=== PATIENT | male | born 1975 | race Caucasian/White ===

== ENCOUNTER 2016-12-29 13:28 | Inpatient (IN) | payer OTHER ==
[~2016-12-29] VITALS: Ht 188 cm; Wt 115.7 kg
[2016-12-29 13:30] VITALS: O2SAT 97
[2016-12-29] MEDS ORDERED: LORAZEPAM 1 MG TAB SL STA (14:12)
[2016-12-29 14:29] LABS: URINE APPEARANCE CLEAR (CLEAR); URINE BILIRUBIN NEG (NEG); URINE COLOR YELLOW; URINE EPITHELIAL CELL AUTO 20-30 /lpf (0-5); URINE NITRITE NEG (NEG); URINE PH 5.5 (4.5-7.5); URINE SPECIFIC GRAVITY 1.021 (1.000-1.030); UROBILINOGEN NEG (NEG)
--- NOTE | 2016-12-29 14:30 | EMERGENCY ROOM VISIT NOTE ---
History Report prepared by Christopher: Rinku Leyva Under the Supervision of: Dr. Geremias Clay D.O. First contact with patient: 13:35 Chief Complaint: MENTAL HEALTH EVALUATION Stated Complaint: MR History of Present Illness The patient is a 41 year old male who presents to the Emergency Room by police with complaints of mental health problems. The patient arrived at the emergency department for a 302 petition. At this time the patient denies any suicidal or homicidal ideation. He does state that he has been compliant with his medications with the exception of this morning. He is very concerned because he was recently discharged from his primary care physician's practice. The patient has had multiple mental health admissions in the past. He states that he was recently admitted to at [facility] for inpatient psychiatric care for 302 petition as well. He is very concerned about this admission and continues to talk about the paperwork that he brought with him regarding this admission. The patient is also very concerned because he does not have any follow-up at this time. He's currently denying any suicidal or homicidal ideation. He states that he is homeless. He denies any medical complaints such as headache chest pain shortness of breath or fever. He does have abrasions on his lower extremities from being outdoors. He denies any drug or alcohol abuse recently. Review of Systems See HPI for pertinent positives & negatives. A total of 10 systems reviewed and were otherwise negative. Past Medical & Surgical Medical Problems: (1) Suicidal ideation No pertinent past medical history stated. Family History No pertinent family history stated. Social History Smoking Status: Current Every Day Smoker Smokeless Tobacco Use: No Alcohol Use: occasionally Drug Use: none Current/Historical Medications Scheduled Phentermine Hcl (Adipex P), 37.5 MG PO DAILY Sertraline (Zoloft), 150 MG PO DAILY Topiramate (Topamax), 150 MG PO DAILY Allergies Coded Allergies: No Known Allergies (Unverified , 12/30/16) Physical Exam Vital Signs Date Time Temp Pulse Resp B/P (MAP) Pulse Ox O2 Delivery O2 Flow Rate FiO2 12/29/16 19:28 87 16 12/29/16 19:13 94 2 12/29/16 19:05 100 12/29/16 19:01 117/69 12/29/16 18:58 86 7 12/29/16 18:40 120/75 12/29/16 13:30 36.7 86 18 158/95 97 Room Air Physical Exam GENERAL: Patient awake and alert. He appears very guarded and anxious. EYES: The conjunctivae are clear. The pupils are round and reactive. EARS, NOSE, MOUTH AND THROAT: The nose is without any evidence of any deformity. Mucous membranes are moist tongue is midline NECK: The neck is nontender and supple. RESPIRATORY: Normal respiratory effort is noted there is no evidence of wheezing rhonchi or rales CARDIOVASCULAR: Regular rate and rhythm noted there no murmurs rubs or gallops normal S1 normal S2 GASTROINTESTINAL: The abdomen is soft. Bowel sounds are present in all quadrants. Abdomen is nontender MUSCULOSKELETAL/EXTREMITIES: There is no evidence of gross deformity full range of motion is noted in the hips and shoulders SKIN: There is no obvious evidence of any rash. There are linear abrasions over both lower extremities. There are no signs of infection or cellulites.. NEUROLOGIC: Patient is awake alert and oriented x3 strength is symmetric patellar reflexes are 2+ bilaterally PSYCH: Patient is awake and alert. He is very guarded and anxious appearing. His thought processes is very tangential. The patient continues to talk about an episode that occurred at a previous hospital when he was admitted for mental health inpatient stay last month. The patient appears somewhat paranoid at times. He is unsure why there was a 302 petition at this time. Medical Decision & Procedures Laboratory Results 12/29/16 14:36 Red Blood Count 5.18, Mean Corpuscular Volume 85.3, Mean Corpuscular Hemoglobin 29.2, Mean Corpuscular Hemoglobin Concent 34.2, Mean Platelet Volume 9.8, Neutrophils (%) (Auto) 67.8, Lymphocytes (%) (Auto) 25.1, Monocytes (%) (Auto) 6.2, Eosinophils (%) (Auto) 0.5, Basophils (%) (Auto) 0.2, Neutrophils # (Auto) 8.27, Lymphocytes # (Auto) 3.06, Monocytes # (Auto) 0.75, Eosinophils # (Auto) 0.06, Basophils # (Auto) 0.02 12/29/16 14:36 Test 12/29/16 13:30 12/29/16 14:36 Urine Color YELLOW Urine Appearance CLEAR (CLEAR) Urine pH 5.5 (4.5-7.5) Urine Specific [place] 1.021 (1.000-1.030) Urine Protein NEG (NEG) Urine Glucose (UA) NEG (NEG) Urine Ketones 1+ (NEG) Urine Occult Blood NEG (NEG) Urine Nitrite NEG (NEG) Urine Bilirubin NEG (NEG) Urine Urobilinogen NEG (NEG) Urine Leukocyte Esterase TRACE (NEG) Urine WBC (Auto) 1-5 /hpf (0-5) Urine RBC (Auto) 0-4 /hpf (0-4) Urine Hyaline Casts (Auto) 1-5 /lpf (0-5) Urine Epithelial Cells (Auto) 20-30 /lpf (0-5) Urine Bacteria (Auto) NEG (NEG) Urine Opiates Screen NEG (NEG) Urine Methadone, Qualitative NEG (NEG) Urine Barbiturates NEG (NEG) Urine Phencyclidine (PCP) Level NEG (NEG) Ur Amphetamine/Methamphetamine POS (NEG) MDMA (Ecstasy) Screen NEG (NEG) Urine Benzodiazepines Screen NEG (NEG) Urine Cocaine Metabolite NEG (NEG) Urine Marijuana (THC) NEG (NEG) White Blood Count 12.18 K/uL (4.8-10.8) Red Blood Count 5.18 M/uL (4.7-6.1) Hemoglobin 15.1 g/dL (14.0-18.0) Hematocrit 44.2 % (42-52) Mean Corpuscular Volume 85.3 fL (80-100) Mean Corpuscular Hemoglobin 29.2 pg (25-34) Mean Corpuscular Hemoglobin Concent 34.2 g/dl (32-36) Platelet Count 292 K/uL (130-400) Mean Platelet Volume 9.8 fL (7.4-10.4) Neutrophils (%) (Auto) 67.8 % Lymphocytes (%) (Auto) 25.1 % Monocytes (%) (Auto) 6.2 % Eosinophils (%) (Auto) 0.5 % Basophils (%) (Auto) 0.2 % Neutrophils # (Auto) 8.27 K/uL (1.4-6.5) Lymphocytes # (Auto) 3.06 K/uL (1.2-3.4) Monocytes # (Auto) 0.75 K/uL (0.11-0.59) Eosinophils # (Auto) 0.06 K/uL (0-0.5) Basophils # (Auto) 0.02 K/uL (0-0.2) RDW Standard Deviation 45.2 fL (36.4-46.3) RDW Coefficient of Variation 14.5 % (11.5-14.5) Immature Granulocyte % (Auto) 0.2 % Immature Granulocyte # (Auto) 0.02 K/uL (0.00-0.02) Anion Gap 8.0 mmol/L (3-11) Est Creatinine Clear Calc Drug Dose 131.5 ml/min Estimated GFR () 107.9 Estimated GFR (Non- 93.1 BUN/Creatinine Ratio 13.0 (10-20) Calcium Level 9.0 mg/dl (8.5-10.1) Total Bilirubin 0.5 mg/dl (0.2-1) Direct Bilirubin < 0.1 mg/dl (0-0.2) Aspartate Amino Transf (AST/SGOT) 44 U/L (15-37) Alanine Aminotransferase (ALT/SGPT) 40 U/L (12-78) Alkaline Phosphatase 108 U/L (45-117) Total Protein 7.8 gm/dl (6.4-8.2) Albumin 4.0 gm/dl (3.4-5.0) Thyroid Stimulating Hormone (TSH) 0.979 uIu/ml (0.300-4.500) Ethyl Alcohol mg/dL < 3.0 mg/dl (0-3) Laboratory results per my review. Medications Administered Medications (Trade) Dose Ordered Sig/Zoë Route Start Time Stop Time Status Last Admin Dose Admin Haloperidol Lactate (Haldol Inj) 10 mg NOW STAT IV 12/29/16 17:53 12/29/16 17:54 DC 12/29/16 17:59 10 MG ED Course 1348: The patient was evaluated in room A7. A complete history and physical examination were performed. 1412: Ordered Ativan Tab 1 mg SL. 1735: The patient has become combative and is being placed under leather restraints. 1745: I checked in on the patient. He will not calm down. 1753: Ordered Haldol Inj 10 mg IV. 1800: I spoke with Dr. Griffith of Psychiatry. The patient will be evaluated for further management and care by -[facility]. Medical Decision Differential diagnosis: Etiologies such as mood disorder, infection, hypoglycemia, electrolyte abnormalities, cardiac sources, intracerebral event, toxicologic, neurologic, as well as others were entertained. Nursing notes reviewed. The patient is a 41-year-old male who presented to the emergency department for a mental health evaluation. The patient has significant mental health history. He presented for a 302 evaluation. The patient had significant paranoia as well as tangential thought process. I feel he may have some underlying bipolar disorder but also has some psychotic features to his presentation today. He was reassured multiple times. He was even given medication for anxiety. His condition continued to escalate. Initially he did not seem to meet criteria for inpatient involuntary admission but the patient does not have the best outpatient follow-up arranged. He was reevaluated multiple times by myself as well as the mental health case sealer. He started to have very significant outbursts and became very angry at multiple occasions. He required further sedation. He was even restrained at one point physically but this was very short -lived the patient was able to be taken out of restraints and reassured. We discussed his case with the on-call psychiatrist and he was evaluated by the delegate from [address] [place] [address]. He was felt to be a candidate for admission but at this time I do not want to allow the patient to stay as a 201 rather I feel his condition could escalate and I would feel more comfortable if he was made a 302 for his own safety as well as the safety of the admission staff. The 302 petition was filled out and I signed it. The patient was medically cleared in the emergency department. Medication Reconcilliation Current Medication List: was personally reviewed by me Blood Pressure Screening Patient's blood pressure: Elevated blood pressure Blood pressure disposition: Elevated BP felt to be situational Consults Time Called: 1750 Consulting Physician: Dr. Griffith -Psychiatry Returned Call: 1800 I discussed the patient's case with Dr. Griffith. The patient will be evaluated for by [address] [place] [address] further management. Impression Primary Impression: Mood disorder Additional Impressions: Jessica Psychosis Scribe Attestation The scribe's documentation has been prepared under my direction and personally reviewed by me in its entirety. I confirm that the note above accurately reflects all work, treatment, procedures, and medical decision making performed by me. Departure Information Dispostion [facility] ([address] [place] [address]) Referrals No Doctor, Assigned (PCP) Patient Instructions My [facility] Problem Qualifiers
[2016-12-29 14:36] LABS: REVIEW REQ? NO
[2016-12-29 14:37] LABS: MANUAL MICROSCOPIC REQUIRED? NO
[2016-12-29 14:48] LABS: BASO % 0.2 %; BASO ABS # 0.02 K/uL (0-0.2); COMPLETE YES; EOS % 0.5 %; HEMATOCRIT 44.2 % (42-52); IG% 0.2 %; LYMPH % 25.1 %; LYMPH ABS # 3.06 K/uL (1.2-3.4); MEAN CELL VOLUME 85.3 fL (80-100); MEAN CORPUSCULAR HEMOGLOBIN 29.2 pg (25-34); MEAN CORPUSCULAR HGB CONC 34.2 g/dl (32-36); MEAN PLATELET VOLUME 9.8 fL (7.4-10.4); MONO % 6.2 %; NEUT % 67.8 %; PLATELET COUNT 292 K/uL (130-400); RED BLOOD COUNT 5.18 M/uL (4.7-6.1); WHITE BLOOD COUNT 12.18 K/uL (4.8-10.8)
[2016-12-29 15:07] LABS: BENZODIAZEPINE, URINE NEG (NEG); COCAINE,URINE NEG (NEG); PHENCYCLIDINE, URINE NEG (NEG)
[2016-12-29 15:14] LABS: ALT/SGPT 40 U/L (12-78); AST/SGOT 44 U/L (15-37); BLOOD UREA NITROGEN 13 mg/dl (7-18); CARBON DIOXIDE 24 mmol/L (21-32); CHLORIDE 107 mmol/L (98-107); GLUCOSE 85 mg/dl (70-99); POTASSIUM 3.4 mmol/L (3.5-5.1); SODIUM 139 mmol/L (136-145)
[2016-12-29 15:25] LABS: ALKALINE PHOSPHATASE 108 U/L (45-117); THYROID STIMULATING HORMONE 0.979 uIu/ml (0.300-4.500)
[2016-12-29] MEDS ORDERED: TOPI50TA16 PO (16:25)
[2016-12-29] MEDS ORDERED: SERT50TA PO (16:25)
[2016-12-29] MEDS ORDERED: PHEN37.585 PO (16:25)
[2016-12-29] MEDS ORDERED: HALOPERIDOL LACTATE 5 MG/ML 1 ML VIAL IV STA (17:53)
[2016-12-29] MEDS ORDERED: HALOPERIDOL 5 MG TAB PO PRN (19:45)
[2016-12-29] MEDS ORDERED: ALUMINUM/MAGNESIUM SUSP 30 ML UDC PO PRN (19:45)
[2016-12-29] MEDS ORDERED: HALOPERIDOL LACTATE 5 MG/ML 1 ML VIAL IM PRN (19:45)
[2016-12-29] MEDS ORDERED: SODIUM CHLORIDE 0.65% NA SOLN 45 ML (OCEAN) PRN (19:45)
[2016-12-29] MEDS ORDERED: hydrOXYzine HCL 25 MG TAB PO PRN ×2 (19:45)
[2016-12-29] MEDS ORDERED: MAGNESIUM HYDROXIDE SUSP 30 ML UDC PO PRN (19:45)
[2016-12-29] MEDS ORDERED: ACETAMINOPHEN 325 MG TAB PO PRN (19:45)
[2016-12-29] MEDS ORDERED: BISMUTH SUBSALICYLATE PER ML OMNICELL CHARGE PO PRN (19:45)
[2016-12-29 20:50] VITALS: BP 117/69; PULSE 87; TEMP 36.7; BMI 32.7
[2016-12-30 06:52] VITALS: BP 108/66; PULSE 73; TEMP 36.7
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
[2016-12-30] MEDS: PATIENT'S ALLERGY INFO NEEDS ENTERED SCH ×2 (10:07→10:33)
[2016-12-30] MEDS: HALOPERIDOL 5 MG TAB PO SCH ×2 (14:49→21:11)
[2016-12-31 06:59] VITALS: Ht 188 cm; Wt 115.7 kg
[2016-12-31 07:00] VITALS: BP 121/76; PULSE 73; PULSE 96; TEMP 36.6
[2016-12-31] MEDS ORDERED: HLD5 PO (08:39)
[2016-12-31] MEDS ORDERED: DESTROY THIS MEDICATION ONE (08:45)
--- NOTE | 2016-12-31 08:47 | Discharge Instructions ---
Discharge Information Report Includes Report will include the: Discharge Instructions & Summary Admission Admission Date / Time: Dec 29, 2016 at 19:42 Reason for Admission: Suicidal Ideation Discharge Discharge Diagnosis / Problem: Psychosis NOS. Antisocial personality. Malingering. Condition at Discharge: Poor Discharge Goals Goal(s): Improve function, Improve disease control, Learn about illness, Therapeutic intervention, Specific goals (stop medication that may be worsening your condition) Activity Recommendations Activity Limitations: per Instructions/Follow-up section . Instructions / Follow-Up Instructions / Follow-Up . SPECIAL CARE INSTRUCTIONS: 1. When you are released from longterm, you should schedule follow up with an outpatient psychiatrist. Follow through with your scheduled aftercare appointments. If unable to keep an appointment, please call to reschedule. 2. Take your medication only as prescribed. Medication should not be changed or stopped without the approval of your doctor. In the event of worsening symptoms or concerns about side effects, contact your doctor immediately. You should not take medications that are addictive or abusable, such as phentermine , which was discontinued. 3. Utilize new healthy coping skills, anger management skills, and stress management skills learned during your hospitalization. Journal feelings and process them with a support person. Identify stressors or situations that may result in relapse, deterioration or inappropriate behaviors and develop a plan to deal with those issues. 4. If your coping skills are ineffective and you are in crisis, contact your outpatient providers for direction. If unable to reach your providers, please call the CAN HELP LINE AT or go to the closest Emergency Room. 5. Avoid alcohol and un-prescribed drugs. 6. You have been provided with the Mental Health Advance Directives Pamphlet for your review. AFTERCARE APPOINTMENTS: * Please call your insurance company prior to your scheduled appointment to confirm your aftercare providers are covered. Take your insurance information to your appointments. . Discharge / Aftercare Planning . Follow-Up Care Plan for Follow-Up Care: To be arranged when released from longterm. Current Hospital Diet Patient's current hospital diet: Regular Diet Discharge Diet Recommended Diet: Regular Diet Procedures Procedures Performed: No Pending Studies Pending Studies at Discharge: No Medical Emergencies . Who to Call and When: Medical Emergencies: For questions or emergencies related to your hospital stay, please contact the Inpatient Behavioral Health Unit at [phone]. A social worker psychiatric is on-call 16/11 for the Behavioral Health Unit for emergencies At any time you feel your situation is an emergency, you may also call 911 immediately. . Non-Emergent Contact Non-Emergency issues call your: Primary Care Provider, Psychiatrist Advance Directives Existing Advance Directive: No Do You Have an Existing Mental: No Existing Living Will: No Existing Power of Fire Lookout: No Advance Directives Info Given: To Pt/S.O. Advance Directives Reason: Declines as Mental Health Visit. Discharge Summary Admission HPI Per the Admitting provider: This is the patient's first episode of care in our facility. He self reported a history of bipolar disorder, schizophrenia, and PTSD, with multiple past psychiatric admissions to other hospitals. He presented to the emergency room with police yesterday 12/29/2016 afternoon on a 302 petition from 12/25/2016 from a social welfare research worker who spoke with the patient on the phone on that date. He was "severely escalated," said he hated his providers, the police would be pressing charges on him for a falsified 302 years ago which would violated his parole and send him to longterm, and said he was going to prevent that by getting in his car and driving to a bridge in [facility]. He was yelling and swearing, and then hung up on the crisis counselor. The crisis counselor notes that the patient has "a history of severe aggression." They were unable to reach him after the initial phone call, as his phone was turned off. The police were unable to find him until yesterday, when they brought him into our emergency room. On his initial assessment in the emergency room, he denied psychiatric symptoms and suicidality, and the emergency room physician was going to discharge him. He said he had been admitted to [facility]'s psychiatric unit one month ago, and discharged on medications, but did not have outpatient follow-up , and was recently discharged from his PCP's practice. He said he was homeless , and had been living on the street. He was very focused on his previous admission, stating that the hospital had accused him of threatening somebody, resulting in criminal charges. The patient was informed that as he was not being admitted, his humane officer would be picking him up from the emergency room and taking him to longterm. He then became agitated, stated he was suicidal and homicidal, stated he was going to "strap a bomb to my chest, kill myself and blow up everyone in the [facility] house." He said that "there are people who are trying to kill me and no one will listen to me." He said his ex-girlfriend's father is out to get him, and endorsed irritability and anger outbursts. He became increasingly agitated, required 4 point restraints and IM Haldol. He was unable to answer questions for an admission assessment upon arrival to the unit due to sedation. Today, the patient is seen in his room, where he is seated on his bed. He is irritable and poorly cooperative, often refusing to answer questions, or going off on tangents. He initially states he doesn't want to participate in the assessment, saying I should just look at his records. He repeatedly returns to the topic of prescription drug abuse in his home town, stating that "I'm carrying medical evidence that implicates a small town area that distributes OxyContin... Okay, it's my belief that since I turned in my girlfriend's drug dealing dad, that my life is in danger." He admits that he denied all psychiatric symptoms in the emergency room yesterday, and only reported homicidal ideation once he was informed he would be going to longterm. He states "probation told me that if I'm not inpatient, it would be a violation. I don't think an incarcerative setting is the right place for me. I may end up taking someone's life because I think I'm in danger." He says that he is having thoughts of harming others, but denies thoughts to harm any specific person, and states that he might harm someone if he has to go to longterm. He denies suicidal thoughts today, but states "I've had so much trauma in the past 6 months, I swear to fucking God I'm about to lose my mind." He lists multiple stressors, stating that he has been the victim of corrupt police and in social worker palliative care for all of his life, and this has caused all of his problems. He states that he is "bipolar, mostly manic, [place]," and that his mood has been unstable, despite taking Topamax and sertraline, which he says were prescribed by a psychiatrist, Dr. Hicks, at [facility]. He says he is no longer in treatment, as he was fired by his PCP, therapist, and psychiatrist. He talks about many complaints he has filed against different healthcare workers and facilities. He says that he has evidence that his PCP was prescribing large amounts of narcotics to his girlfriend's father, and when he reported it, his PCP "yelled at me and fired me." He initially states he was admitted to [facility] psychiatrically, but then states that he was seen in their emergency room multiple times, but never admitted. He states that somebody tried to involuntarily commit him, but he was released from the emergency room. He says "I even have a letter that it was unappropriated." He endorses paranoia that people in his home town are out to get him, but will not state why he thinks this is so. He denies hallucinations, elevated or grandiose mood , increased energy, decreased need for sleep, and symptoms consistent with panic. He says he has PTSD from "living, growing, being," and endorses symptoms of hypervigilance and "self-preservation." He is very irritable and uncooperative with most of the assessment. He initially states that we can help him by adjusting medications as he has been "manic," but then refuses all suggestions for more potent mood stabilizers, (Depakote, risperidone and olanzapine), stating that he wants me to get all of his past records and review them before he will agree to take anything. He did sign a release for [facility], but refused to sign releases for his humane officer or [facility]. Spoke with staff at [facility], who stated he was previously seen there for medication management and therapy, but has not been seen since October, and is discharged from their practice and barred from returning. He was seeing a Dr. Darden for med management, last seen 11/23/2016, and last seen for therapy on 11/12/2016. They will be sending records today. Also spoke with his PO, Stephen Montemayor. Advised that the patient is refusing to sign an ALIYA so I cannot provide information, and he said it is a condition of his probation that the patient sign an ALIYA so they know his treatment plan and discharge plans. He said the patient has a history of probation involvement x 10 years, had been sent for a 60 day psych eval through the office of probation and was treated and improved. He has been more angry and threatening recently in the context of a breakup with his girlfriend, and thinks everyone is out to get him. He's accused his ex of being a child abuser, his ex girlfriend and her family members of being a drug dealer, and that the system is corrupt and he should notify the FBI. He says he doesn't trust any mental health providers as "they drug me," and had gone to an eval at [facility] but left. He has no place to live, and has been on the street. He violated a PFA from his ex-. He has threatened his mental health providers in the past and frequently threatens to robyn providers/facilities. He does not know details of his mental health diagnoses, but says he is paranoid and the things he says are not real. He will perseverate for hours on the corrupt system and his ex-, and is extremely manipulative and not honest with others. He is on probation for violating the PFA against his ex-, has violated probation, and will be going to longterm at discharge, as they have a detainer on him. Admission Exam Per the Admitting provider: Please see admission H&P. Hospital Course (1) Psychosis 12/29 - Start Haldol 5mg bid. 12/30 - Continue Haldol. Patient uncooperative with treatment and I do not think he will benefit from further inpatient care. He does have paranoia, and should follow up with mental health services in the longterm, and as an outpatient once he is released. (2) Malingering He refused to sign releases for his PO and for recent records from [facility]. He is not going to groups or participating in treatment. He initially denied all psychiatric symptoms, SI and HI, and only made suicidal statements and threats to harm others once he was told he had violated probation and was going to longterm. He admits he said these things so that he would not go to longterm, which supports a diagnosis of malingering. He has not been forthcoming here and has attempted to manipulate to avoid going to longterm and facing the consequences of his actions. He will be discharged to police custody, as he is not cooperating with care and is unlikely to benefit from further inpatient treatment. (3) Mood disorder -The patient reports a history of bipolar disorder, but denies episodes consistent with classic emanuel; as he is a poor historian, will need OP records/ collateral. Although he reports unstable mood, he is refusing recommendations for a more potent mood stabilizer (discussed risperidone, olanzapine, and Depakote). For now, I will hold the Topamax and sertraline, as Topamax as a poor mood stabilizer and this combination may be playing a role in his poorly controlled mood and irritability. I informed him that I would be ordering Haldol, which she received to the emergency room yesterday and was effective; start 5 mg twice a day. Continue as needed Haldol for psychosis or agitation. -Requested outpatient records from [facility], and was informed by their staff that they will be sent today. Also got collateral from PO as above. -Hold phentermine, as this may be contributing to mood destabilization and agitation. Called the prescribing GENERALIST, Shani Isaac, at [facility] to inform her of concerns and that the medication is being stopped. Their staff stated that he has been discharged from the practice. Patient brought in home supply, which will need to be destroyed at discharge. -Follow up on UDS results (+amphet/meth, synthetic stimulants and cannabinoids still pending). 12/30 - patient continues to refuse mood stabilizers (recommended Depakote), but is taking Haldol, which may give some benefit. (4) Antisocial personality disorder He has a history of threatening others, dishonesty, attempts to manipulate others, repeatedly breaks the law, irritability and aggressiveness, and impulsivity and failure to plan ahead. Cannot rule out malingering, as he denied all psychiatric symptoms in the emergency room, and then reported poorly controlled mood, suicidality, and homicidality only after he was informed that he was being discharged to longterm. He is poorly cooperative with treatment, and at the time of discharge will be going to police custody as above. (5) Suicidal ideation Patient reported suicidal ideation in the emergency room, which occurred in the context of being informed he was being discharged to longterm. He denies suicidal ideation. Continue 15 minute checks for safety. 12/30 - Patient denying SI here, has not engaged in self injurious behavior, and states he was only threatening to harm himself and others as a way to avoid going to longterm. He should be placed on appropriate precautions in longterm, as he has stated he may act out in violence in an attempt to avoid incarceration. Risk Factors Assessment Male: Yes : Yes /single/: Yes Higher / Fall in social status: No Health problems: No Mental Health Diagnoses: Yes Previous attempt: Yes Previous psychiatric stay: Yes Hopelessness: Yes Smoker: Yes Protective Factors Assessment : No Responsible for young children: No Employed: No Stable relationships: No Good rapport with provider: No Absence of risk factors above: Yes ( risk factors were mitigated by admission to the inpatient unit, starting medication for psychotic and mood symptoms, stopping medication that is likely to exacerbate his current condition, coordinating care with the prescriber of said medication, attempting to obtain information about past treatment and gather collateral information about recent behavior and symptoms, coordinating care with his humane officer, attempting to involve him in groups and therapy on the unit which he refused, and recommending mood stabilizing medication which he refused. Although he continues to endorse paranoia, he denies thoughts of harming himself or others, has not been violent or aggressive here, and admits that he made the statements because he did not want to go to longterm. He does have a history of threats to others, and is doing this in a manipulative way for his own personal gain. He has been diagnosed with malingering and antisocial personality disorder, and these issues will need to be dealt with by the legal system. Although he remains at increased risk for harm both to self and others compared to the general population, his remaining risk factors are not amenable to further inpatient treatment. He will be discharged into police custody and will be incarcerated, and would recommend that he have suicide precautions instituted in longterm as he may try to harm himself in order to get out of longterm.) Day of Discharge Assessment Hospital Course: The patient was uncooperative with care, refusing to attend groups, participate in unit programming, or sign releases for his recent treatment at [facility] or for his humane officer. He did take Haldol, which was started for paranoia and agitation. He was initially resistant to taking medication, but ultimately agreed to take it, and it did appear to help. He isolated in his room, and was irritable and argumentative with staff when approached. He was very focused on his belongings, accusing staff of losing the things he had brought in with him. He refused to sign all admission paperwork, including his belongings list, insisting that it did not include his computer and EBT card, although the list clearly stated that his laptop was sent to the safe. He refused to sign his treatment plan. He continued to talk about various conspiracy theories, involving his ex-, his ex-girlfriend and her father, and health care workers in his home county. He was noted to be eating and sleeping well, and tended to his ADLs independently. He spoke to his humane officer by phone, and told staff that his humane officer told him that if he had aftercare in place to stay, he could be discharged and did not need to go to longterm. This physician also spoke to his humane officer shortly after that, and was informed that this was not the case, and that the patient is manipulative and frequently untruthful. Day of discharge assessment: The patient is seen in his room, initially keeps his back to this physician and refuses to answer questions other than to grunt. He eventually sat up, but continued to be irritable and uncooperative. He says he has been spending his time "talking to my by mouth, I actually have an apartment that I can go to." He continues to refuse to sign the requested releases of information, saying "they weren't adequate, and you said you couldn't get involved in my legal problems, I tried to involve you, and you just turned her nose up." He continues to complain about his computer and phone being lost, despite being reassured that his items are in the safe as specifically listed on the belongings list in his chart. He denies thoughts of harming himself or anyone else, and then refuses to answer further questions, stating "I think you are already know the answers to these questions." He says there is "no way" that he is going to any groups or participating in treatment. Overweight white male appearing older than stated age. Casually dressed and adequately groomed. Irritable and uncooperative. Seated in [facility], with fair eye contact and no abnormal movements. Speech is minimal, angry tone. Mood is "eh, " and affect is restricted irritable. Thoughts are perseverative on his conspiracy theories and all the people who have wronged him. The patient denied suicidal and homicidal ideation. He refuses to discuss a safety plan. He endorses paranoia and delusions of persecution, but denies hallucinations and does not appear to be responding to internal stimuli. Cognition is grossly intact. Alert and oriented to person, place and time. Intelligence is consistent with level of education. Insight and and judgment are limited. Laboratory Test 12/29/16 13:30 12/29/16 14:36 Urine Color YELLOW Urine Appearance CLEAR Urine pH 5.5 Urine Specific [place] 1.021 Urine Protein NEG Urine Glucose (UA) NEG Urine Ketones 1+ Urine Occult Blood NEG Urine Nitrite NEG Urine Bilirubin NEG Urine Urobilinogen NEG Urine Leukocyte Esterase TRACE Urine WBC (Auto) 1-5 Urine RBC (Auto) 0-4 Urine Hyaline Casts (Auto) 1-5 Urine Epithelial Cells (Auto) 20-30 Urine Bacteria (Auto) NEG Urine Synthetic Stimulants Pending Urine Opiates Screen NEG Urine Methadone, Qualitative NEG Urine Barbiturates NEG Urine Phencyclidine (PCP) Level NEG Urine Amphetamines Confirmation Pending Ur Amphetamine/Methamphetamine POS Urine Methamphetamine Confirmation Pending MDMA (Ecstasy) Screen NEG Urine Benzodiazepines Screen NEG Urine Cocaine Metabolite NEG Cannabinoids Comment Pending Urine Synthetic Cannabinoids Pending Ur Synthetic Cannabinoids Confirm Pending Urine Marijuana (THC) NEG White Blood Count 12.18 Red Blood Count 5.18 Hemoglobin 15.1 Hematocrit 44.2 Mean Corpuscular Volume 85.3 Mean Corpuscular Hemoglobin 29.2 Mean Corpuscular Hemoglobin Concent 34.2 Platelet Count 292 Mean Platelet Volume 9.8 Neutrophils (%) (Auto) 67.8 Lymphocytes (%) (Auto) 25.1 Monocytes (%) (Auto) 6.2 Eosinophils (%) (Auto) 0.5 Basophils (%) (Auto) 0.2 Neutrophils # (Auto) 8.27 Lymphocytes # (Auto) 3.06 Monocytes # (Auto) 0.75 Eosinophils # (Auto) 0.06 Basophils # (Auto) 0.02 RDW Standard Deviation 45.2 RDW Coefficient of Variation 14.5 Immature Granulocyte % (Auto) 0.2 Immature Granulocyte # (Auto) 0.02 Sodium Level 139 Potassium Level 3.4 Chloride Level 107 Carbon Dioxide Level 24 Anion Gap 8.0 Blood Urea Nitrogen 13 Creatinine 1.00 Est Creatinine Clear Calc Drug Dose 131.5 Estimated GFR () 107.9 Estimated GFR (Non- 93.1 BUN/Creatinine Ratio 13.0 Random Glucose 85 Calcium Level 9.0 Total Bilirubin 0.5 Direct Bilirubin < 0.1 Aspartate Amino Transferase (AST) 44 Alanine Aminotransferase (ALT) 40 Alkaline Phosphatase 108 Total Protein 7.8 Albumin 4.0 Thyroid Stimulating Hormone (TSH) 0.979 Ethyl Alcohol mg/dL < 3.0 Total Time Total Time Spent (min): Greater than 30 minutes Total Time Included: examination of the patient, discharge planning, medication reconciliation Tobacco Cessation at Discharge Smoking Status: Current Every Day Smoker FDA approved Prescription: declined med & out pt counseling, nicotine replacement product
[2016-12-31] MEDS: HALOPERIDOL 5 MG TAB PO SCH (09:00)
[2016-12-31] MEDS ORDERED: LORAZEPAM 1 MG TAB PO SCH (10:00)
[2017-01-02 10:33] LABS: SYNTHETIC CANNABINOIDS QL URIN NEGATIVE (Negative)
== END 2016-12-31 13:50 | DRG 885 ==
LOC: C.EDB 13:29 → C.MHU 19:42
PROVIDERS: ADMIT Psychiatry & Neurology Psychiatry; ATTEND Psychiatry & Neurology Psychiatry
DX: F39 Unspecified mood [affective] disorder (principal); R45.851 Suicidal ideations; R45.850 Homicidal ideations; F60.2 Antisocial personality disorder; Z78.1 Physical restraint status; Z76.5 Malingerer [conscious simulation]; E66.3 Overweight; F17.200 Nicotine dependence, unspecified, uncomplicated; Z79.899 Other long term (current) drug therapy; Z59.0 Homelessness